=== PATIENT | female | born 1960 ===

== ENCOUNTER 2019-02-21 20:05 | Emergency (ER) | payer OTHER ==
[~2019-02-21] VITALS: Ht 154.9 cm; Wt 49.0 kg
[~2019-02-21 20:05] MED LIST: FLONASE16 GM NS; GILTUSS TR TAB1 EACH PO; SINGULAIR10 MG PO; ZYRTEC10 MG PO
== END 2019-02-21 22:55 | disposition home or self-care (01) ==
LOC: ER 20:05
DX: S01.521A Laceration with foreign body of lip, initial encounter (principal); W22.8XXA Striking against or struck by other objects, initial encounter; Y93.89 Activity, other specified; Y92.098 Other place in other non-institutional residence as the place of occurrence of the external cause; Y99.8 Other external cause status

== ENCOUNTER 2019-02-28 10:13 | Emergency (ER) | payer OTHER ==
[~2019-02-28] VITALS: Ht 165.1 cm; Wt 49.9 kg
== END 2019-02-28 11:11 | disposition home or self-care (01) ==
LOC: ER 10:13
DX: Z48.02 Encounter for removal of sutures (principal)

== ENCOUNTER 2022-03-06 15:07 | Emergency (ER) | payer OTHER ==
[~2022-03-06] VITALS: Ht 154.9 cm; Wt 49.9 kg
[2022-03-06] MEDS ORDERED: LEVOFLOXACIN500 MG PO (21:00)
[2022-03-06] MEDS ORDERED: PYRIDIUM200 MG PO (21:00)
== END 2022-03-06 23:06 | disposition home or self-care (01) ==
LOC: ER 15:07
DX: N39.0 Urinary tract infection, site not specified (principal)

== ENCOUNTER 2025-03-07 19:52 | Emergency (ER) | payer OTHER ==
[~2025-03-07] VITALS: Ht 162.6 cm; Wt 68.0 kg
[~2025-03-07 19:52] MED LIST changes: +LEVOFLOXACIN500 MG PO; +PYRIDIUM200 MG PO
[2025-03-07] MEDS ORDERED: LIPITOR20 MG PO (20:41)
[2025-03-07] MEDS ORDERED: levoFLOXacin IN DEXTROSE 5 % 5 MG/ML PIGGYBAG IV ONE (22:00)
[2025-03-07 23:20] LABS: HEMATOCRIT 38.7 % (36.0-45.00); HEMOGLOBIN 13.1 g/dL (12.0-15.00); MEAN CELL VOLUME 95.1 fL (80.00-100.00); MEAN CORPUSCULAR HEMOGLOBIN 32.1 pg (27.00-32.0); MEAN CORPUSCULAR HGB CONC 33.8 g/dl (32.0-36.0); PLATELET COUNT 293 K/uL (150-450); RED BLOOD COUNT 4.07 M/uL (4.00-6.00); RED CELL DISTRIBUTION WIDTH 13.2 % (11.5-14.5)
[2025-03-07 23:49] LABS: ALBUMIN 4.4 gm/dL (3.4-5.0); BILIRUBIN TOTAL 0.41 mg/dL (0.3-1.2); CREATININE SERUM 0.87 mg/dL (0.55-1.02); GFR 65.76; GLOBULINA 3.2 G/DL (2.4-3.5); POTASSIUM 3.97 mEq/L (3.5-5.1); TOTAL PROTEIN 7.6 gm/dL (6.4-8.2)
[2025-03-07 23:51] LABS: URINE APPEARANCE Turbid; URINE BILIRRUBIN Small (NEGATIVE); URINE BLOOD Large; URINE COLOR Red; URINE GLUCOSE Negative (NEGATIVE); URINE KETONE Negative (NEGATIVE); URINE LEUKOCYTE Large; URINE NITRATE Negative; URINE UROBILINOGEN 0.2 E.U./dl
[2025-03-07] MEDS ORDERED: LEVOFLOXACIN750 MG PO (23:54)
[2025-03-07] MEDS ORDERED: PYRIDIUM200 MG PO (23:54)
[2025-03-07 23:55] LABS: URINE BACTERIA 550.7 uL (0.0-1933); URINE EPITHELIAL CELLS 36.5 uL (0.0-38.8)
[2025-03-08 00:19] LABS: URINE PROTEIN 100 (NEGATIVE); URINE RBC > 10558.9 uL (0.0-20.8); URINE WBC > 5548.3 uL (0.0-23.2)
== END 2025-03-08 00:24 | disposition home or self-care (01) ==
LOC: ER 19:52
PROVIDERS: General Practice
DX: N39.0 Urinary tract infection, site not specified (principal); Z88.0 Allergy status to penicillin; Z88.2 Allergy status to sulfonamides; R31.9 Hematuria, unspecified; K57.30 Diverticulosis of large intestine without perforation or abscess without bleeding